=== PATIENT | female | born 1965 | race Caucasian/White ===

== ENCOUNTER 2020-12-06 12:19 | Outpatient (CLI) | payer BC | END 2020-12-06 12:20 | disposition home or self-care (01) | LOC: CSHMAMMO 12:19 | PROVIDERS: ATTEND Family Medicine | DX: Z12.31 Encounter for screening mammogram for malignant neoplasm of breast (principal) | CPT/HCPCS: 77063; 77067 ==

== ENCOUNTER 2021-12-25 12:25 | Outpatient (CLI) | payer BC | END 2021-12-25 12:26 | disposition home or self-care (01) | LOC: CSHMAMMO 12:25 | PROVIDERS: ATTEND Family Medicine | DX: Z12.31 Encounter for screening mammogram for malignant neoplasm of breast (principal) | CPT/HCPCS: 77063; 77067 ==

== ENCOUNTER 2022-02-09 09:21 | Outpatient (CLI) | payer BC | END 2022-02-09 09:22 | disposition home or self-care (01) | LOC: CSHULT 09:21 | PROVIDERS: ATTEND Physician Assistant Medical | DX: K21.9 Gastro-esophageal reflux disease without esophagitis (principal); Z83.71 Family history of colonic polyps; K80.20 Calculus of gallbladder without cholecystitis without obstruction; R19.8 Other specified symptoms and signs involving the digestive system and abdomen | CPT/HCPCS: 76705 ==

== ENCOUNTER 2023-01-10 14:42 | Outpatient (CLI) | payer BC | END 2023-01-10 14:43 | disposition home or self-care (01) | LOC: CSHMAMMO 14:42 | PROVIDERS: ATTEND Family Medicine | DX: Z12.31 Encounter for screening mammogram for malignant neoplasm of breast (principal) | CPT/HCPCS: 77063; 77067 ==